=== PATIENT | female | born 1990 | race Caucasian/White ===

== ENCOUNTER 2021-03-24 11:34 | Outpatient (CLI) | payer OTHER, SELFPAY ==
--- NOTE | ~2021-03-24 | US_ITS ---
EXAMINATION: US breast RT limited HISTORY: Chronic lump of the lower inner left breast with recent increase in size with TECHNIQUE: Limited right breast ultrasound is performed. FINDINGS: There is a 3.8 x 1.9 cm oval, circumscribed, parallel, hypoechoic mass with posterior acous tic enhancement and internal vascularity at the 4:00 location 5 cm from the nipple corresponding to t he palpable abnormality of concern. IMPRESSION: Indeterminate right breast mass. Given patient's reported of increase in size with , ultraso und-guided biopsy would be recommended. BI-RADS category 4, suspicious findings. Reviewed, dictated and finalized at location A. [employer]IST IMPRESSION: Indeterminate right breast mass. Given patient's reported of increase in size w ith , ultrasound-guided biopsy would be recommended. BI-RADS category 4, suspicious findings.
== END 2021-03-24 11:35 | disposition home or self-care (01) ==
LOC: ANHIMG 11:39
PROVIDERS: Visit Provider Advanced Practice Midwife
DX: N63.10 Unspecified lump in the right breast, unspecified quadrant (principal); R92.8 Other abnormal and inconclusive findings on diagnostic imaging of breast
CPT/HCPCS: 76642

== ENCOUNTER 2021-07-12 08:03 | Inpatient (IN) | payer OTHER, SELFPAY ==
[2021-07-12] VITALS (22 sets, daily range): BP systolic 91–130; BP diastolic 44–86; PULSE 47–89; TEMP 36.6–36.9; BMI 20.8
[2021-07-12 07:10] LABS: Basophils Percent Auto 0.3 % (0.2-1.2); Eosinophils Percent Auto 0.4 % (0-4.4); Hematocrit 28.6 % (37.0-47.0); Hemoglobin 9.7 g/dL (12.0-15.0); Immature Granulocyte Absolute 0.03 K/mm3 (0.00-0.031); Immature Granulocyte Percent A 0.4 % (0-0.5); Lymphocytes Absolute Auto 1.02 K/mm3 (0.9-3.2); Lymphocytes Percent Auto 13.7 % (18.3-44.2); Mean Corpuscular HGB Conc 33.9 g/dl (32-36); Mean Corpuscular Hemoglobin 31.9 pg (26-34); Mean Corpuscular Volume 94.1 fl (80-100); Mean Platelet Volume 10.1 fl (7.4-10.4); Monocytes Absolute Auto 0.6 K/mm3 (0.1-0.6); Monocytes Percent Auto 8.6 % (2.6-8.5); Neutrophils Absolute Auto 5.7 K/mm3 (1.3-6.7); Neutrophils Percent Auto 76.6 % (45.5-73.1); Platelet Count Result 207 k/mm3 (150-375); Red Blood Count 3.04 M/mm3 (4.2-5.4); Red Cell Distribution Width 13.2 % (11.5-14.5); White Blood Count 7.5 K/mm3 (4.5-10.0)
[2021-07-12] MEDS: AMPICILLIN 2 GM/NS 100 ML 2 GM/100 ML BAG IVPB (07:23)
[2021-07-12] MEDS: BETAMETHASONE SOD PHOS/ACETATE 30 MG/5 ML VIAL 12 MG IM (07:24)
[2021-07-12] MEDS: LACTATED RINGERS 1,000 ML 125 ML IV CONT (07:24)
--- NOTE | 2021-07-12 07:49 | WPDOBADMIT ---
Obstetrics - Admit Note Admission Note: record reviewed. No pertinent additions to the history and/or any subsequent changes in the physical findings that are not consistent with the expected course of the were found. Pt admitted for PPROM, plan antibiotics, hx delivery Additions to the history and/or subsequent changes in the physical findings follow. None.
--- NOTE | 2021-07-12 08:00 | LDADM ---
This patient, Janie Haney, was admitted to Labor/Delivery/Recovery 108 on at 06:20. Plans for labor, pain management and were discussed with patient. Patient/family oriented to hospital policies and general routines including ID bracelet, bed and alarms, visiting hours, pain management, procedures, bathroom and other care routines, personal items, smoking policy, room service/diet and guest tray routines, infant security routines, and visiting hours. Patient/Family are encouraged to report perceived risks to care and to ask questions if they do not understand what they are told or what they should do. See OBIX for further documentation.
[2021-07-12] MEDS: AMPICILLIN 1 GM/NS 50 ML 1 GM/50 ML BAG IVPB ×3 (11:30→19:19)
[2021-07-12] MEDS: OXYTOCIN 30 UNITS/NS 500 ML 30 UNITS/500 ML BAG IV CONT (12:53)
[2021-07-12 12:55] LABS: Amphetamine Screen Urine Negative (Negative); Barbiturate Screen Urine Negative (Negative); Benzodiazepines Screen Urine Negative (Negative); Cannabinoid Screen Urine Positive (Negative); Cocaine Screen Urine Negative (Negative); Methadone Screen Urine Negative (Negative); Opiate Screen Urine Negative (Negative); Phencyclidine Screen Urine Negative (Negative)
--- NOTE | 2021-07-12 17:02 | PM.OBPNLAB ---
Pain Control Date/time seen: 07/12/21 17:02 SVE /-2 forebag AROM of forebag, small amount of clear odorless fluid, anticipate vaginal delivery
[2021-07-12] MEDS: OXYTOCIN 10 UNITS/ML VIAL 20 UNITS (20:26)
--- NOTE | 2021-07-12 20:36 | PM.OBPRVD ---
OB - Delivery Note Procedure Delivery date: 07/12/21 Procedure: vaginal delivery Events: Intrauterine Growth Restriction (IUGR) and Premature Rupture of Membranes Delivery augmentation: Rupture of Membranes and Pitocin Delivery monitor: External FHT and External Uterine Route of delivery: Laceration Description: None Specimen: Yes Quantitative Blood Loss (ml): 50 Anesthesia type: Epidural Disposition: Floor Baby Date of : 07/12/21 Time of : 20:21 Weeks of gestation at delivery: 34 gender: Female Weight (pounds): 4 Weight (ounces): 1 presentation: vertex position: Left Occiput Anterior Placenta delivery description: Spontaneous Cord Vessel Description: 3 Vessels and Clamped/Cut Narrative: mother in stable condition, baby to nursery, nursery RN and manager talent acquisition at bedside at delivery
[2021-07-12] MEDS: FAMOTIDINE 20 MG TABLET (20:47)
[2021-07-12] MEDS: ONDANSETRON INJ 4 MG/2 ML VIAL IV PUSH (21:43)
[2021-07-12] MEDS: FAMOTIDINE 20 MG/2 ML VIAL (21:47)
[2021-07-13 00:24] VITALS: BP 110/53; PULSE 59; RESP 16; TEMP 36.8
[2021-07-13 05:00] VITALS: BP 95/41; PULSE 64; RESP 16; TEMP 36.7
[2021-07-13 06:02] LABS: Hematocrit 28.2 % (37.0-47.0); Hemoglobin 9.3 g/dL (12.0-15.0)
[2021-07-13 06:54] LABS: Rapid Plasma Reagin Non-Reactive (NonReactive)
[2021-07-13] MEDS: DOCUSATE SODIUM 100 MG CAPSULE PO ×2 (07:06→16:38)
[2021-07-13] MEDS: MULTIVIT/MIN/PREN/FOL AC/IRON TABLET 1 TAB PO (07:07)
[2021-07-13] MEDS: ACETAMINOPHEN 325 MG TABLET 650 MG PO (07:07)
[2021-07-13] MEDS: CALCIUM CARBONATE (TUMS) 500 MG (200 MG ELEMENTAL) 400 MG (07:07)
[2021-07-13] MEDS: POLYSACCHARIDE IRON COMPLEX 150 MG CAPSULE PO ×2 (07:08→16:38)
[2021-07-13 07:15] VITALS: BP 111/61; PULSE 59; RESP 16; RESP 18; TEMP 37; O2SAT 99
--- NOTE | 2021-07-13 07:53 | PM.OBPNVD ---
OB - PN: Subj Subjective Date/time seen: 07/13/21 07:53 Patient comments: no complaints and pain well controlled baby status: doing well (in level 2) OB - PN: Obj Data Labs CBC & Chem 7: 07/13/21 05:09 Labs: Laboratory Results - last 24 hr 07/12/21 07/12/21 07/12/21 07:02 07:02 12:32 Hgb Hct Urine Opiates Screen Negative Urine Methadone Screen Negative Ur Barbiturates Screen Negative Ur Phencyclidine Scrn Negative Ur Amphetamine Screen Negative U Benzodiazepines Scrn Negative Urine Cocaine Screen Negative U Cannabinoids Screen Positive A RPR Non-reactive Antibody Screen Negative 07/13/21 05:09 Hgb 9.3 L Hct 28.2 L Urine Opiates Screen Urine Methadone Screen Ur Barbiturates Screen Ur Phencyclidine Scrn Ur Amphetamine Screen U Benzodiazepines Scrn Urine Cocaine Screen U Cannabinoids Screen RPR Antibody Screen OB - PN A/P Assessment and Plan (1) delivery, delivered: Code(s): O60.10X0 - labor with delivery, unspecified trimester, not applicable or unspecified Status: Acute Plan day: 1 Plan: routine care Time Spent With Patient Time: Total time spent is greater than 50% in coordination of care (as documented) at patient's floor/unit and/or counseling patient: Time with patient: less than 15 minutes Exam Narrative: NAD abdomen soft, nontender, fundus firm below the umbilicus Extremities nontender, 1+ edema
--- NOTE | 2021-07-13 10:21 | PC.NURSE ---
1020 - Introductions were made and mother discussed pumping experience so far. Mother has been storing colostrum, Father delivered colostrum to downstairs nursery and states that the is getting a bath, then the plan is to bring upstairs to the parents. Mother voiced that she has been consistently pumping about every 3 hours and understanding to call for assistance with pump flange assessment, her for the first time, if there is no latch or if there is discomfort with latching. Reported to primary RN.
[2021-07-13 12:10] VITALS: BP 114/53; PULSE 59; RESP 16; TEMP 36.8; O2SAT 99
--- NOTE | 2021-07-13 12:15 | PC.NURSE ---
1155 - Mother and Father are sharing time with skin to skin. Mother is knowledgeable with , milk production, feeding early term infants and is in communication with WIC counselor Trang Lynne. Plan of care will be to hand express to move colostrum down, attempt to latch , then if no latch pump for colostrum to syringe feed . Mother voiced understanding of calling for assistance, if there is no latch or discomfort with latching.
--- NOTE | 2021-07-13 14:14 | PC.NURSE ---
[id number] Consulted with patient to assess needs related to her 34 EGA infant. Mother works well with her with encouragement and education. Encouraged understanding of the benefits of skin to skin (unwrapping infant and placing vertically on her chest) with maintaining temperature of infant, responsive feeding and how to watch for early feeding signs (understanding that infant may not demonstrate feeding cues at this gestational age, frequency of feeding on demand about every 8-12 times in 24 hours (every 2-3 hours), milk production, duration of feeding, signs of adequate intake/output and how to record on the feeding sheet. Reviewed positioning and ear, shoulder, hip alignment, supporting the breast, asymmetrical latch (off-center), and leading with the chin with a big open side gape. is not demonstrating any feeding cues. Reminding mother of comfort measures of healing with a warm and wet washcloth to rinse breast, then leave open to air-dry as needed. Reviewed good handwashing when or touching the breast/nipples to prevent infection. Mother states she had a lesion develop after the last pumping session. 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 Instructions given on cleaning, care, usage, there should be no pain, pumping schedule for milk production, collection, and storage of human milk. Parents are encouraged to record pumping schedule on the feeding sheet. Patient was assessed for correct placement, flange size, to pump for comfort and nipple stretching/stimulation for adequate milk production. Colostrum of 3 mls expressed. has a poor to weak suck and feeding infant with syringe took 25 min. No respiratory issues with feeding but infant was immature with demonstrating swallowing. Resources used to facilitate learning were used with the mom and baby guide. Mother voiced understanding of responsive feedings as it pertains to the 34 w 2 d , stimulating with skin to skin, hand expressed colostrum, touch, talking to infant to encourage if it has been 2 -3 hours since the start of the last , to call if infant does not latch or there is discomfort with . Reported to the primary RN.
[2021-07-13 16:29] VITALS: BP 102/55; PULSE 56; RESP 20; TEMP 36.8; O2SAT 99
[2021-07-13 20:15] VITALS: BP 116/74; PULSE 72; RESP 16; TEMP 36.7
--- NOTE | 2021-07-14 07:25 | P.PNOB_ITS ---
OB - PN: Subj Subjective Date/time seen: 07/14/21 07:25 Patient comments: no complaints and pain well controlled baby status: doing well [place] feeding status: pumping and bottle feeding Narrative: Feeling great! Baby with them on D10, but per dad feedings improving. Plan to stay in no care room. OB - PN: Obj Data Labs CBC & Chem 7: 07/13/21 05:09 OB - PN A/P Assessment and Plan (1) delivery, delivered: Code(s): O60.10X0 - labor with delivery, unspecified trimester, not applicable or unspecified Status: Acute Plan day: 2 Plan: routine care and discharge home Time Spent With Patient Time: Total time spent is greater than 50% in coordination of care (as documented) at patient's floor/unit and/or counseling patient: Time with patient: less than 15 minutes Exam Narrative: NAD abdomen soft, nontender, fundus firm below the umbilicus Extremities nontender, 1+ edema
--- NOTE | 2021-07-14 07:29 | PM.DS ---
DS: Admitting Diagnosis Discharge Date 07/14/21 Admitting Diagnosis labor DS: Discharge Diagnosis Discharge Diagnosis (1) delivery, delivered: Code(s): O60.10X0 - labor with delivery, unspecified trimester, not applicable or unspecified Status: Acute DS: Summary Hospital Course Hospital Course: Janie was admitted in labor at 34w and had an uncomplicated . Her course was uncomplicated. Status at Discharge Functional status at discharge: independent ambulation Time Spent with Patient Time attestation: Total time spent providing and/or coordinating discharge services: DS: Data Data Completed and Pending Pending studies at discharge: Pending at discharge 07/12/21 11:28 Surgical [PTH] Routine Discharge Plan Discharge Attending physician on discharge: Analy Warren Discharging Clinician: Analy Warren Anticipated Discharge Date/Time: 07/14/21 07:27 Patient Disposition: Home, Self-Care Activity: pelvic rest Diet: regular Patient Instructions: Antibiotic Form Stand Alone Forms: General Discharge Information Follow-up/Referrals: Analy Warren MD [Physician] - 4 Weeks Date of admission: 07/12/21 08:03 Primary Care Provider: UNKNOWN,DOCTOR Admitting Provider: Analy Warren Attending physician on admission: Analy Warren Condition: Stable
[2021-07-14 08:10] VITALS: BP 118/60; PULSE 56; RESP 18; TEMP 36.6; O2SAT 99
[2021-07-14 10:00] VITALS: PULSE 56; RESP 18; O2SAT 99
--- NOTE | 2021-07-14 14:12 | PC.NURSE ---
1350 Mother led the conversation with her experience and plan to feed her so far. Reminded parents to use good handwashing technique to prevent infection. Mother is feeding appropriately for growth of infant and understands stimulating to eat if needed. Infant has had adequate feedings in the last 24 hours meets the outcomes for weight, output and jaundice at this time but will continue be an inpatient. is not latching to the breast. Parents are using a nipple to feed expressed breastmilk to infant, then Mother states she is confident to continue working with her 34 EGA infant to teach /pumping/supplementing with breastmilk. Mother is in contact with her [employer] counselor for [employer] [facility]. Reinforced understanding of milk production, transition of milk, signs of adequate intake, prevention/relief of engorgement, responsive after visualizing feeding cues, the different methods of stimulating to breastfeed 2-3 hours after the start of the last feeding, resources, community resources, medication information reviewed per [facility] and when to call a provider using the resource of the mom and baby guide/[facility] website. Mother voiced understanding of the education shared. Reported to the primary RN.
--- NOTE | 2021-07-14 18:39 | PC.NURSE ---
Discharged to no care bed at this time. Pt expresses understanding of this status.
[2021-07-15 07:49] VITALS: BP 111/75; PULSE 62; RESP 20; TEMP 36.5; O2SAT 99
== END 2021-07-14 18:39 | disposition home or self-care (01) | DRG 560 ==
LOC: ANHOBOP 08:03 → ANHLDR 08:03 → ANHOB2 23:42
PROVIDERS: Advanced Practice Midwife; Admitting Provider Obstetrics & Gynecology; Visit Provider Obstetrics & Gynecology
DX: O42.913 Preterm premature rupture of membranes, unspecified as to length of time between rupture and onset of labor, third trimester (principal); Z37.0 Single live birth; Z3A.34 34 weeks gestation of pregnancy; O60.14X0 Preterm labor third trimester with preterm delivery third trimester, not applicable or unspecified; O36.5930 Maternal care for other known or suspected poor fetal growth, third trimester, not applicable or unspecified
CPT/HCPCS: 36415; 80307; 84112; 85014; 85018; 85025; 86592; 86850; 86900; 86901; 88307; 96372; A9270; J0290; J0702; J2405; J2590; J7120